=== PATIENT | male | born 1935 | race Two or more races ===

== ENCOUNTER 2017-06-27 07:17 | Outpatient (CLI) | payer OTHER | END 2017-06-27 07:28 | disposition home or self-care (01) | LOC: MRI 07:17 | DX: M25.561 Pain in right knee (principal) | CPT/HCPCS: 73718 ==

== ENCOUNTER 2017-09-22 08:33 | Outpatient (CLI) | payer OTHER | END 2017-09-22 10:27 | disposition home or self-care (01) | LOC: LAB 08:33 | DX: D45 Polycythemia vera (principal); D75.1 Secondary polycythemia; D50.0 Iron deficiency anemia secondary to blood loss (chronic); D53.1 Other megaloblastic anemias, not elsewhere classified; C64.2 Malignant neoplasm of left kidney, except renal pelvis ==

== ENCOUNTER 2018-01-12 07:44 | Outpatient (CLI) | payer OTHER | END 2018-01-12 13:16 | disposition home or self-care (01) | LOC: LAB 07:44 | DX: I11.0 Hypertensive heart disease with heart failure (principal); D53.8 Other specified nutritional anemias; N39.0 Urinary tract infection, site not specified; E78.2 Mixed hyperlipidemia; E11.9 Type 2 diabetes mellitus without complications; E04.0 Nontoxic diffuse goiter; N36.2 Urethral caruncle ==

== ENCOUNTER 2018-07-13 08:14 | Outpatient (CLI) | payer OTHER | END 2018-07-13 08:30 | disposition home or self-care (01) | LOC: LAB 08:14 | DX: C64.2 Malignant neoplasm of left kidney, except renal pelvis (principal); N30.00 Acute cystitis without hematuria; R31.9 Hematuria, unspecified; E11.9 Type 2 diabetes mellitus without complications; E78.2 Mixed hyperlipidemia; I11.0 Hypertensive heart disease with heart failure; D53.8 Other specified nutritional anemias; E04.1 Nontoxic single thyroid nodule ==

== ENCOUNTER 2018-08-01 09:08 | Outpatient (CLI) | payer OTHER | END 2018-08-01 09:23 | disposition home or self-care (01) | LOC: RAD 09:08 | DX: C64.2 Malignant neoplasm of left kidney, except renal pelvis (principal) | CPT/HCPCS: 71250; 74183; A9579 ==

== ENCOUNTER 2018-08-22 08:26 | Outpatient (CLI) | payer OTHER | END 2018-08-22 15:00 | disposition home or self-care (01) | LOC: LAB 08:26 | DX: I11.9 Hypertensive heart disease without heart failure (principal); D68.8 Other specified coagulation defects ==

== ENCOUNTER 2018-11-04 11:22 | Outpatient (CLI) | payer OTHER | END 2018-11-04 11:24 | disposition home or self-care (01) | LOC: SONOGRAMA 11:22 | DX: N40.1 Benign prostatic hyperplasia with lower urinary tract symptoms (principal); R31.9 Hematuria, unspecified ==

== ENCOUNTER → 2018-12-25 | Outpatient (CLI) | payer OTHER | END | disposition home or self-care (01) | LOC: RAD 14:29 | DX: Z96.651 Presence of right artificial knee joint (principal) ==

== ENCOUNTER → 2019-01-02 09:52 | Outpatient (CLI) | payer OTHER | END | disposition home or self-care (01) | LOC: LAB 09:52 | DX: N30.00 Acute cystitis without hematuria (principal) ==

== ENCOUNTER 2019-03-12 16:22 | Outpatient (CLI) | payer OTHER | END 2019-03-12 16:29 | disposition home or self-care (01) | LOC: LAB 16:22 | DX: R97.20 Elevated prostate specific antigen [PSA] (principal) ==

== ENCOUNTER 2019-05-29 09:31 | Outpatient (CLI) | payer OTHER | END 2019-05-29 10:00 | disposition home or self-care (01) | LOC: NUCLEAR 09:31 | DX: C64.2 Malignant neoplasm of left kidney, except renal pelvis (principal) | CPT/HCPCS: 78306; 78320; A9503 ==

== ENCOUNTER 2019-07-09 07:04 | Outpatient (CLI) | payer OTHER | END 2019-07-09 07:10 | disposition home or self-care (01) | LOC: LAB 07:04 | DX: E78.2 Mixed hyperlipidemia (principal); I10 Essential (primary) hypertension; I11.0 Hypertensive heart disease with heart failure; E04.0 Nontoxic diffuse goiter; E11.9 Type 2 diabetes mellitus without complications; N39.0 Urinary tract infection, site not specified; N40.0 Benign prostatic hyperplasia without lower urinary tract symptoms; N18.2 Chronic kidney disease, stage 2 (mild) ==

== ENCOUNTER 2020-09-16 14:47 | Outpatient (CLI) | payer OTHER | END 2020-09-16 14:54 | disposition home or self-care (01) | LOC: RAD 14:47 | PROVIDERS: ATTEND Ophthalmology | DX: R07.89 Other chest pain (principal); J44.9 Chronic obstructive pulmonary disease, unspecified; J45.998 Other asthma ==

== ENCOUNTER 2021-02-07 15:13 | Inpatient (IN) | payer OTHER ==
[~2021-02-07] VITALS: Ht 170.2 cm; Wt 68.0 kg
== END 2021-02-15 17:09 | disposition expired | DRG 698 ==
LOC: ER 15:13 → SURH 21:55 → SEC-K 21:55 → SURH 22:59
PROVIDERS: Radiology Vascular & Interventional Radiology; ADMIT Urology; ATTEND Urology
PROC: 3E0F7SF Introduction of Other Gas into Respiratory Tract, Via Natural or Artificial Opening (ICD-10-PCS; 2021-02-08)
PROC: 4A12X4Z Monitoring of Cardiac Electrical Activity, External Approach (ICD-10-PCS; 2021-02-08)
PROC: 02HV33Z Insertion of Infusion Device into Superior Vena Cava, Percutaneous Approach (ICD-10-PCS; 2021-02-09)
PROC: 0T25X0Z Change Drainage Device in Kidney, External Approach (ICD-10-PCS; principal; 2021-02-09 14:30)
PROC: 5A09457 Assistance with Respiratory Ventilation, 24-96 Consecutive Hours, Continuous Positive Airway Pressure (ICD-10-PCS; 2021-02-14)
DX: N99.522 Malfunction of incontinent external stoma of urinary tract (principal); J96.01 Acute respiratory failure with hypoxia; N13.6 Pyonephrosis; J44.1 Chronic obstructive pulmonary disease with (acute) exacerbation; N17.8 Other acute kidney failure; E87.2 Acidosis; C79.51 Secondary malignant neoplasm of bone; E11.9 Type 2 diabetes mellitus without complications; I10 Essential (primary) hypertension; R13.19 Other dysphagia; Z20.822 Contact with and (suspected) exposure to COVID-19; Y84.6 Urinary catheterization as the cause of abnormal reaction of the patient, or of later complication, without mention of misadventure at the time of the procedure; E11.65 Type 2 diabetes mellitus with hyperglycemia; C61 Malignant neoplasm of prostate; D69.49 Other primary thrombocytopenia; Z66 Do not resuscitate